=== PATIENT | female | born 1955 | race Caucasian/White ===

== ENCOUNTER 2018-06-22 08:00 | Inpatient (IN) ==
[2010-12-01 11:36] VITALS: BP 130/89
[~2018-06-22 08:00] MED LIST: BUPivacaine Liposome/PF (Exparel) Inj 20ml vial INFIL ONE; Clindamycin 900mg (Premix) 900 MG/50 ML BAG IV ONE; Ketorolac Inj 30 MG, Morphine Inj (Ortho Cocktail) 5 MG, BUPivacaine Inj 0.25% PF 150 MG SPLASH ONE; LIDOCAINE W/ SODIUM BICARB 0.5 ML SYR SUBD ONE; Lactated Ringers 1,000 ML PRIMARY IV SCH; Nasal Sanitizer POPSWAB ampule 3 AMP (Nozin) PREOP DOSE ENOS SCH; Tranexamic Acid 1,000 MG in Sodium Chloride 0.9% 100 ML IV SCH
[2018-07-12] MEDS ORDERED: Nasal Sanitizer POPSWAB ampule 3 AMP (Nozin) PREOP DOSE ENOS SCH (06:00)
[2018-07-12] MEDS ORDERED: Ketorolac Inj 30 MG, Morphine Inj (Ortho Cocktail) 5 MG, BUPivacaine Inj 0.25% PF 150 MG SPLASH ONE ×3 (06:00)
[2018-07-12] MEDS ORDERED: BUPivacaine Liposome/PF (Exparel) Inj 20ml vial INFIL ONE (06:00)
[2018-07-12] MEDS ORDERED: Tranexamic Acid 1,000 MG in Sodium Chloride 0.9% 100 ML IV SCH (06:00)
[2018-07-20] MEDS ORDERED: Clindamycin 900mg (Premix) 900 MG/50 ML BAG IV ONE ×2 (05:59→06:00)
[2018-07-20] MEDS ORDERED: Lactated Ringers 1,000 ML PRIMARY IV ONE (05:59)
[2018-07-20] MEDS ORDERED: LIDOCAINE W/ SODIUM BICARB 0.5 ML SYR ONE (05:59)
[2018-07-20] MEDS ORDERED: Tranexamic Acid 1,000 MG in Sodium Chloride 0.9% 100 ML IV SCH (06:00)
[2018-07-20] MEDS ORDERED: Lactated Ringers 1,000 ML PRIMARY IV SCH (06:00)
[2018-07-20] MEDS ORDERED: Nasal Sanitizer POPSWAB ampule 3 AMP (Nozin) PREOP DOSE ENOS SCH (06:00)
[2018-07-20] MEDS ORDERED: LIDOCAINE W/ SODIUM BICARB 0.5 ML SYR SUBD ONE (06:00)
[2018-07-20] MEDS ORDERED: Ketorolac Inj 30 MG, Morphine Inj (Ortho Cocktail) 5 MG, BUPivacaine Inj 0.25% PF 150 MG SPLASH ONE ×3 (06:00)
[2018-07-20] MEDS ORDERED: BUPivacaine Liposome/PF (Exparel) Inj 20ml vial INFIL ONE ×2 (06:00→07:23)
[2018-07-20 06:25] LABS: BILIRUBIN,URINE NEGATIVE (NEG); CLARITY,URINE CLEAR (CLEAR); COLOR,URINE YELLOW (Y); GLUCOSE, URINE (UA) NEGATIVE (NEG); OCCULT BLOOD,URINE NEGATIVE (NEG); PH,URINE 5.5 (5.0-8.5); PROTEIN,URINE NEGATIVE (NEG); UROBILINOGEN,URINE 0.2 EU/dL (0.2)
[2018-07-20 06:29] LABS: URINE SAMPLE TYPE CLEAN CATCH URINE
[2018-07-20 06:30] LABS: URINE SPECIFIC GRAVITY - MAN 1.025
[2018-07-20 06:31] LABS: BACTERIA,URINE FEW; SQUAMOUS EPITHELIAL CELL,UR FEW
[2018-07-20 06:51] LABS: BASOPHILS # (AUTO) 0.04 10*3/UL; BASOPHILS % (AUTO) 0.8 % (0-1); EOSINOPHILS # (AUTO) 0.19 10*3/UL; EOSINOPHILS % (AUTO) 3.9 % (0-8); Hemoglobin [HGB] 13.4 g/dL (12.0-16.0); LYMPHOCYTES # (AUTO) 1.82 10*3/uL; MEAN CORPUSCULAR HEMOGLOBIN 30.1 PG (27-31); MEAN CORPUSCULAR HGB CONC 32.7 g/dL (33-37); MEAN CORPUSCULAR VOLUME 92.1 FL (81-99); MEAN PLATELET VOLUME 9.4 FL (7.4-12.2); MONOCYTES # (AUTO) 0.33 10*3/UL (0.3-0.8); MONOCYTES % (AUTO) 6.7 % (5-15); NEUTROPHILS # (AUTO) 2.51 10*3/UL; NEUTROPHILS % (AUTO) 51.4 % (50-80); RED BLOOD COUNT 4.45 10^6/uL (4.20-5.40)
[2018-07-20] MEDS: LIDOCAINE W/ SODIUM BICARB 0.5 ML SYR SUBD ONE ×2 (06:57→16:34)
[2018-07-20 06:59] LABS: PLATELET MORPHOLOGY COMMENT NORMAL MORPHOLOGY (NORM); RBC MORPHOLOGY COMMENT NORMAL MORPHOLOGY (NORM); WBC MORPHOLOGY COMMENT NORMAL MORPHOLOGY (NORM)
[2018-07-20 07:01] LABS: BLOOD UREA NITROGEN 13 mg/dL (7-22); BUN/CREATININE RATIO 14.44 (6-20)
[2018-07-20] MEDS ORDERED: ONDANSETRON 4 MG/2 ML VIAL ONE (07:07)
[2018-07-20] MEDS ORDERED: DEXAMETHASONE PF 10 MG/1 ML VIAL ONE (07:07)
[2018-07-20] MEDS ORDERED: Acetaminophen 1000mg Inj 1,000 MG/100 ML VIAL IV ONE (07:07)
[2018-07-20] MEDS ORDERED: LIDOCAINE 2%/ EPI 1:200,000 - 20 ML VIAL ONE (07:16)
[2018-07-20] MEDS ORDERED: MIDAZOLAM 5 MG/1 ML ONE (07:17)
[2018-07-20] MEDS ORDERED: BUPivacaine Inj 0.5% PF (5mg/ml) 30ml vial ONE (07:17)
[2018-07-20] MEDS ORDERED: fentaNYL Inj 250 MCG/5 ML VIAL ONE (07:17)
[2018-07-20] MEDS ORDERED: SCOPOLAMINE HYDROBROMIDE 1.5 MG - 1 EACH PATCH TRANSDERM ONE (07:20)
[2018-07-20] MEDS ORDERED: Sodium Chloride 0.9% vial 60 ML ONE (07:22)
[2018-07-20] MEDS ORDERED: BACITRACIN 50,000 UNIT VIAL IRRIG ONE (07:23)
[2018-07-20] MEDS ORDERED: Sodium Chloride 0.9% 500 ML ONE (07:37)
[2018-07-20] MEDS ORDERED: LIDOCAINE MPF 2% - 5 ML (20 MG/1 ML) ONE (07:39)
[2018-07-20] MEDS ORDERED: Propofol 1,000 MG/100 ML VIAL IV ONE (07:39)
[2018-07-20] MEDS ORDERED: REMIFENTANIL HCL 2 MG VIAL IV ONE ×3 (07:42→10:56)
[2018-07-20] MEDS ORDERED: REMIFENTANIL 1 MG/1 ML IV ONE (07:42)
[2018-07-20] MEDS: Clindamycin 900mg (Premix) 900 MG/50 ML BAG IV ONE ×2 (08:10→16:34)
[2018-07-20] MEDS ORDERED: ROCURONIUM 10 MG/1 ML - 5 ML VIAL IVP ONE (08:18)
[2018-07-20] MEDS ORDERED: FLUTICASONE PROPIONATE 16 GRAM (120 SPRAYS / BOTTLE) ENOS PRN (08:19)
[2018-07-20] MEDS ORDERED: TRANEXAMIC ACID 1,000 MG / 10 ML VIAL ONE (08:19)
[2018-07-20] MEDS ORDERED: BUDESONIDE 0.5 MG/2 ML NEB PRN (08:19)
[2018-07-20] MEDS ORDERED: ALBUTEROL NEB PRN (08:19)
[2018-07-20] MEDS ORDERED: THYROID PORK 45 MG PO SCH (08:30)
[2018-07-20] MEDS ORDERED: MONTELUKAST Inhalation SCH (08:30)
[2018-07-20] MEDS ORDERED: TOPIRAMATE 100 MG PO SCH (08:30)
[2018-07-20] MEDS ORDERED: ALBUTEROL SULFATE 90 MCG INH SCH (08:30)
--- NOTE | 2018-07-20 08:49 | CRNA.PROCE ---
Nerve Block Documentation - - Type of Nerve Block Used: Left Adductor Canal Nerve Block Position for Nerve Block: Supine Moniters Used During Block: EKG, SPO2, NIBP Oxygen Supplemented: Yes Sedation Used - Enter Amount in Comment Field [ANES.SEDAT]: Midazolam (mg): Yes (2mg), Fentanyl (mcg): Yes (50mcg) Technique: Nerve Stimulator Nerve Block Needle Used: EchoBright 50 mm Stimulation Hz: 2 Stimulation Staring mA: 1.4 Stimulation Ending mA: 0.4 Local Anesthetic - Enter Amt in Comment Field [ANES.LOCNB]: 0.5 % Bupivacaine Plain (mL): Yes (20ml), 2 % Xylocaine with Epinephrine 1:200,000 (mL): Yes (20ml) Additives to Nerve Blocks: Dexamethasone (mg): Yes (8mg(2ml)) - - PreOp Block : Time In: 07:15 PreOp Block : Time Out: 07:30 Anesthesia Time - Other Weight: 76.839 kg Height: 5 ft 3 in Body Mass Index (BMI): 29.9
[2018-07-20] MEDS ORDERED: PROPOFOL 10 MG/1 ML (200 MG/20 ML) VIAL IV ONE ×2 (09:20→10:54)
[2018-07-20] MEDS ORDERED: KETOROLAC 30 MG/1 ML VIAL ONE (10:30)
[2018-07-20] MEDS ORDERED: Lactated Ringers 2,000 ML PRIMARY IV ONE (11:22)
--- NOTE | 2018-07-20 12:18 | CRNA.PROGR ---
Anesthesia Time - Procedure/Recovery Time Start Date: 07/20/18 End Date: 07/20/18 Anesthesia : Time In: 07:56 Anesthesia : Time Out: 12:12 Anesthesia : Total Time: 256 - Block Time Start Date: 07/20/18 End Date: 07/20/18 PreOp Block : Time In: 07:15 PreOp Block : Time Out: 07:30 PreOp Block : Total Time: 15 - Total Anesthesia Time Total Anesthesia Time (minutes): 271 - Other Weight: 76.839 kg Height: 5 ft 3 in Body Mass Index (BMI): 29.9 Physical Status: P2 Anesthesia Type: General Anesthesia : ET (TIVA)
--- NOTE | 2018-07-20 12:18 | CRNA.PROGR ---
Anesthesia Recovery Phase I - Post Anesthesia Evaluation Patient's Condition on Arrival in Phase I: Stable Patient's Condition on Arrival in Phase II: Stable Pain Level: 1
[2018-07-20] MEDS ORDERED: LIDOCAINE W/ SODIUM BICARB 0.5 ML SYR SUBD PRN (12:47)
[2018-07-20] MEDS: HYDROmorphone 2 MG/1 ML IVP PRN ×3 (12:55→17:29)
[2018-07-20] MEDS ORDERED: BISACODYL 5 MG TABLET PO PRN (13:51)
[2018-07-20] MEDS ORDERED: ONDANSETRON 4 MG/2 ML VIAL IVP PRN (13:51)
[2018-07-20] MEDS ORDERED: CALCIUM CARBONATE 500 MG (TUMS) CHEWABLE TABLET PO PRN (13:51)
[2018-07-20] MEDS ORDERED: ACETAMINOPHEN 325 MG TABLET PO PRN (13:51)
[2018-07-20] MEDS ORDERED: Ondansetron ODT Tab 8 MG TAB PO PRN (13:51)
[2018-07-20] MEDS ORDERED: MAG HYDROX/AL HYDROX/SIMETH 30 ML SUSP PO PRN (13:51)
[2018-07-20] MEDS ORDERED: Prochlorperazine Tab 10 MG TAB PO PRN (13:51)
[2018-07-20] MEDS ORDERED: BISACODYL 10 MG SUPPOSITORY RECTAL PRN (13:51)
[2018-07-20] MEDS ORDERED: IBUPROFEN 400 MG TABLET PO PRN (13:51)
[2018-07-20] MEDS ORDERED: LIDOCAINE HCL 2 % 10 ML JELLY URO-JECT TOPICAL PRN (13:51)
--- NOTE | 2018-07-20 13:56 | CONSULT ---
Consult Note - Consult Consult Date: 07/20/18 Reason for Consult: PostOp Consulation : Ortho Requesting Physician: Dr. Barragan Primary Care Provider: Manish HERNANDEZ - History of Present Illness History of Present Illness: This is a 62 years old female with medical history significant for history of anxiety, reactive airway disease, hypothyroidism and osteoarthritis who came into the hospital to have a left knee replacement and was done by Dr. Barragan today. The hospitalist service were consulted for management of medical issues. The patient said she feels better than earlier when she was downstairs as she was having pain in her knee and she was nauseated she received pain medication and antiemetics and that helped her symptoms. She is denying symptoms currently. There is no chest pain, no shortness of breath. Past Medical History Medical History: 1. Hypothyroidism. 2. Anxiety. 3. Osteoarthritis. 4. Reactive airway disease. 5. History of hot flashes on Topamax. Surgical History: 1. History of cholecystectomy. 2. History of tonsillectomy Family History: Reviewed an Not Pertinent Past Social History: Doesn't smoke doesn't drink no drugs. Tobacco Use: Never Smoker In the Past 12 Months, Have Used or Abuse Any of the Following Substance: None Alcohol Use: None Review of Systems - Review of Systems All Systems: Reviewed & No Additional Complaints Except as Stated Medication / Allergies Home Medications: Home Medications Medication Instructions Recorded Confirmed Type Singulair 10 mg INHALATION QAM 12/01/10 07/20/18 History thyroid (pork) 15 mg tablet 45 mg PO QDAY tab 04/01/18 07/20/18 History topiramate XR 100 mg 100 mg PO QDAY 04/01/18 07/20/18 History capsule,extended release 24 hr Albuterol Sulfate [ALBUTEROL NEB 1.25 mg NEB .Q4-6H PRN PRN 06/10/18 07/19/18 History SOLN] Albuterol Sulfate [Proair 90 mcg INH PRN 06/10/18 07/19/18 History Respiclick] Budesonide Neb Soln [Pulmicort Neb 0.5 mg NEB BID PRN 06/10/18 07/19/18 History Soln] Fluticasone Nasal [place] 0.05% 16 gm RADHA PRN PRN 06/10/18 07/19/18 History [Flonase Nasal [place] 0.05%] Meloxicam [Mobic] 7.5 mg PO DAILY 06/10/18 07/20/18 History Hydroxyzine HCl 25 mg PO BID 07/09/18 07/20/18 History Levocetirizine Dihydrochloride 5 mg PO DAILY 07/19/18 07/20/18 History [Xyzal] Duloxetine HCl 60 mg PO DAILY 07/20/18 07/20/18 History Allergies/Adverse Reactions: Allergies Allergy/AdvReac Type Severity Reaction Status Date / Time Penicillins Allergy Intermediate HIVES Verified 07/20/18 13:58 aripiprazole [From Abilify] AdvReac Intermediate NOT Verified 07/20/18 13:58 APPLICABLE Exam - Vitals Vital Signs: Vital Signs Temperature 97.2 F Pulse Rate 94 Respiratory Rate 14 Blood Pressure 126/76 Pulse Ox 98 Oxygen Flow Rate 5L NC Height 5 ft 3 in Weight 169 lb 6.4 oz - General General Appearance: No Acute Distress, Cooperative, Obese - Head Head Exam: Normal Inspection - Eye Eye Exam: POSITIVE: Normal Appearance - ENT ENT Exam: POSITIVE: Normal Exam - Neck Neck Exam: Normal Inspection - Respiratory Respiratory Exam: POSITIVE: Clear to Auscultation - Bilaterally - Cardiovascular Cardiovascular Exam: POSITIVE: RRR - GI/Abdominal GI/Abdominal Exam: POSITIVE: Normal Bowel Sounds, Non Tender, Non Distended, Soft, No Organomegaly - Rectal Rectal Exam: POSITIVE: Deferred - External Exam: POSITIVE: Deferred - Extremities Additional Extremities Exam Details: Dressing applied to the left knee - Neurological Neurological Exam: POSITIVE: Alert, Oriented x 3, CN II-XII Intact, Speech Intact / Clear - Psychiatric Psychiatric Exam: POSITIVE: Normal Affect - Integumentary Integumentary Exam: POSITIVE: Normal Color Results - Labs CBC and BMP: 07/20/18 06:40 07/20/18 06:40 Assessment and Plan - Patient Problems (1) Status post total left knee replacement Current Visit: Yes Status: Acute Comment: Management per Dr. Barragan. He already wrote for pain medication. For DVT prophylaxis he put her on aspirin. PT and OT were consulted. Code(s): Z96.652 - Presence of left artificial knee joint (2) Hypothyroidism Current Visit: Yes Status: Acute Comment: Continue her previous medication. She is on thyroid [place]. Code(s): E03.9 - Hypothyroidism, unspecified (3) Anxiety Current Visit: Yes Status: Acute Comment: Continue [place] Code(s): F41.9 - Anxiety disorder, unspecified (4) History of environmental allergies Current Visit: Yes Status: Acute Comment: Continue [place] Code(s): Z91.09 - Other allergy status, other than to drugs and biological substances
--- NOTE | 2018-07-20 14:04 | DI ---
LEFT KNEE, 07/20/2018 8:10 AM: Clinical History: Status post total knee replacement. Osteoarthritis. Previous Exam: 04/01/2018. Views: AP and lateral. Patient is status post total left knee replacement. Prosthetic joint articulates normally. A negative pressure wound care device is present. Reading: Status post total left knee replacement. The prosthetic joint articulates normally.
[2018-07-20] MEDS: Lactated Ringers 1,000 ML PRIMARY IV SCH ×7 (14:42→18:21)
[2018-07-20] MEDS: Clindamycin 900mg (Premix) 900 MG/50 ML BAG IV SCH ×2 (15:04→21:27)
[2018-07-20] MEDS: HYDROcodone-APAP 7.5 MG-325 MG TABLET PO PRN ×2 (15:18→21:22)
[2018-07-20] MEDS: TOPIRAMATE 100 MG PO SCH (16:38)
[2018-07-20] MEDS: KETOROLAC 15 MG/1 ML VIAL IVP PRN (18:24)
[2018-07-20] MEDS ORDERED: HYDROXYZINE PAMOATE 25 MG CAPSULE PO SCH (21:00)
[2018-07-20] MEDS: DOCUSATE 100 MG CAPSULE PO SCH (21:22)
[2018-07-20] MEDS: FLUTICASONE PROPIONATE ENOS SCH (21:23)
[2018-07-20] MEDS: HYDROXYZINE HCL 25 MG PO SCH (21:24)
[2018-07-21] MEDS: KETOROLAC 15 MG/1 ML VIAL IVP PRN ×2 (00:49→13:41)
[2018-07-21] MEDS: Lactated Ringers 1,000 ML PRIMARY IV SCH (00:50)
[2018-07-21] MEDS: Clindamycin 900mg (Premix) 900 MG/50 ML BAG IV SCH (01:59)
[2018-07-21] MEDS: ARMOUR THYROID 15 MG PO SCH (04:39)
[2018-07-21] MEDS: HYDROcodone-APAP 7.5 MG-325 MG TABLET PO PRN ×5 (04:39→21:50)
[2018-07-21 04:49] LABS: Hematocrit [HCT] 30.6 % (37.0-47.0); Hemoglobin [HGB] 9.6 g/dL (12.0-16.0); MEAN CORPUSCULAR HEMOGLOBIN 29.4 PG (27-31); MEAN CORPUSCULAR HGB CONC 31.4 g/dL (33-37); MEAN CORPUSCULAR VOLUME 93.6 FL (81-99); MEAN PLATELET VOLUME 9.7 FL (7.4-12.2); RED BLOOD COUNT 3.27 10^6/uL (4.20-5.40)
[2018-07-21 05:10] LABS: BLOOD UREA NITROGEN 16 mg/dL (7-22); BUN/CREATININE RATIO 17.77 (6-20)
--- NOTE | 2018-07-21 08:05 | ORTHO.PROG ---
Last Taken Vital Signs: Vital Signs - Last Taken Temperature 97.6 F 07/21/18 07:30 Pulse Rate 76 07/21/18 07:30 Respiratory Rate 16 07/21/18 07:30 Blood Pressure 120/65 07/21/18 07:30 Pulse Ox 98 07/21/18 07:30 Subjective: Patient doing well morning has a little pain about the knee Objective: Examination shows that the patient's negative pressure dressing is in place and working patient also has the iceman cooling sleeve in place. Her motor and sensory exam is intact the lower extremity with ankle toe motion as well as sensory exam. Laboratory Results 07/20/18 07/21/18 07/21/18 06:40 04:11 04:11 WBC 9.81 RBC 3.27 L Hgb 9.6 L Hct 30.6 L MCV 93.6 MCH 29.4 MCHC 31.4 L RDW Std Deviation 42.9 RDW Coeff of Cinthya 13.1 Plt Count 297 MPV 9.7 Sodium 137 D Potassium 4.4 Chloride 104 Carbon Dioxide 27 Anion Gap 6 BUN 16 Creatinine 0.9 Estimated GFR > 60 BUN/Creatinine Ratio 17.77 Glucose 109 Calculated Osmolality 285.0 Calcium 9.0 Blood Type A POSITIVE Antibody Screen Negative Crossmatch See Detail Vital Signs (24 hrs) 07/20/18 12:09 07/20/18 12:15 07/20/18 12:20 Temperature 97.2 F Pulse Rate 66 93 89 Pulse Rate [Pulse Oximeter] Respiratory Rate 14 15 17 Blood Pressure 144/77 153/88 150/93 Blood Pressure [Left Arm] Pulse Ox 91 97 99 07/20/18 12:25 07/20/18 12:30 07/20/18 12:35 Temperature Pulse Rate 85 87 87 Pulse Rate [Pulse Oximeter] Respiratory Rate 18 19 Blood Pressure 146/89 141/97 139/94 Blood Pressure [Left Arm] Pulse Ox 100 100 98 07/20/18 12:40 07/20/18 12:45 07/20/18 12:50 Temperature Pulse Rate 88 83 93 Pulse Rate [Pulse Oximeter] Respiratory Rate Blood Pressure 150/90 141/88 140/99 Blood Pressure [Left Arm] Pulse Ox 99 98 99 07/20/18 12:55 07/20/18 13:00 07/20/18 13:05 Temperature Pulse Rate 87 92 93 Pulse Rate [Pulse Oximeter] Respiratory Rate Blood Pressure 144/95 124/87 133/81 Blood Pressure [Left Arm] Pulse Ox 98 99 98 07/20/18 13:10 07/20/18 13:15 07/20/18 13:20 Temperature Pulse Rate 87 94 91 Pulse Rate [Pulse Oximeter] Respiratory Rate 15 Blood Pressure 133/75 145/83 143/81 Blood Pressure [Left Arm] Pulse Ox 98 98 98 07/20/18 13:25 07/20/18 13:30 07/20/18 13:35 Temperature Pulse Rate 95 92 94 Pulse Rate [Pulse Oximeter] Respiratory Rate 16 15 14 Blood Pressure 122/89 131/77 126/76 Blood Pressure [Left Arm] Pulse Ox 97 99 98 07/20/18 14:00 07/20/18 14:17 07/20/18 14:30 Temperature 97.7 F 97.7 F 97.1 F Pulse Rate Pulse Rate [Pulse Oximeter] 97 97 96 Respiratory Rate 16 16 8 L Blood Pressure Blood Pressure [Left Arm] 123/82 123/82 125/79 Pulse Ox 97 97 96 07/20/18 15:00 07/20/18 15:30 07/20/18 17:00 Temperature 97.4 F 97.8 F Pulse Rate Pulse Rate [Pulse Oximeter] 97 89 Respiratory Rate 12 16 Blood Pressure Blood Pressure [Left Arm] 94/76 121/71 Pulse Ox 93 97 97 07/20/18 19:00 07/20/18 21:00 07/21/18 01:00 Temperature 97.8 F 97.1 F Pulse Rate Pulse Rate [Pulse Oximeter] 64 64 61 Respiratory Rate 20 20 Blood Pressure Blood Pressure [Left Arm] 120/70 134/77 Pulse Ox 94 96 07/21/18 04:05 07/21/18 05:02 07/21/18 06:44 Temperature 97.6 F Pulse Rate Pulse Rate [Pulse Oximeter] 66 Respiratory Rate 20 12 Blood Pressure Blood Pressure [Left Arm] 130/79 Pulse Ox 94 94 07/21/18 07:30 Temperature 97.6 F Pulse Rate Pulse Rate [Pulse Oximeter] 76 Respiratory Rate 16 Blood Pressure Blood Pressure [Left Arm] 120/65 Pulse Ox 98 Assessment: Left hardware removal and total knee Anemia Plan: Patient is doing well at the current time. Patient will continue with physical therapy and occupational therapy. Pain control on oral and IV medication as needed. Deep vein thromboses prevention with aspirin and pneumatic sequentials mobilization. Continue with the icing.
[2018-07-21] MEDS: DOCUSATE 100 MG CAPSULE PO SCH ×2 (08:52→20:21)
[2018-07-21] MEDS: ASPIRIN EC 81 MG TABLET PO SCH (08:52)
[2018-07-21] MEDS: HYDROXYZINE HCL 25 MG PO SCH ×2 (08:54→20:21)
[2018-07-21] MEDS: DULOXETINE 60 MG PO SCH (08:54)
[2018-07-21] MEDS: MONTELUKAST 10 MG PO SCH (08:55)
[2018-07-21] MEDS: LEVOCETIRIZINE 10 MG PO SCH (08:55)
[2018-07-21] MEDS ORDERED: FLUTICASONE PROPIONATE ENOS SCH (09:00)
[2018-07-21] MEDS ORDERED: ASPIRIN 325 MG EC TABLET PO SCH (09:00)
[2018-07-21] MEDS ORDERED: DULOXETINE 60 MG CAPSULE PO SCH (09:00)
[2018-07-21] MEDS ORDERED: DULOXETINE 30 MG CAPSULE PO SCH (09:00)
[2018-07-21] MEDS: TOPIRAMATE 100 MG PO SCH ×2 (09:35→15:59)
--- NOTE | 2018-07-21 10:15 | PDOC(PROG) ---
Date of Service: 07/21/18 Time of Service: 10:13 Interval History: Doing well postoperatively. States that her pain is well controlled. No chest pain, no shortness breath, no vomiting, and states that her nausea is well controlled which is not typical of her prior surgeries. She is very pleased about that. Objective : Data - Labs CBC and BMP: 07/21/18 04:11 07/21/18 04:11 Objective : Exam - General General Appearance: No Acute Distress, Cooperative Additional General Exam Details: Vital Signs - Last Taken Temperature 97.6 F 07/21/18 07:30 Pulse Rate 76 07/21/18 07:30 Respiratory Rate 16 07/21/18 07:30 Blood Pressure 120/65 07/21/18 07:30 Pulse Ox 98 07/21/18 07:30 - Eye Eye Exam: No Scleral Icterus - ENT ENT Exam: Mucous Membranes Moist - Respiratory Respiratory Exam: Clear to Auscultation - Bilaterally, Breathing Non Labored - Cardiovascular Cardiovascular Exam: RRR, No Murmur, No Clicks, No Gallops, No Rubs, No JVD - GI/Abdominal GI/Abdominal Exam: Normal Bowel Sounds, Non Tender, Non Distended, Soft - Extremities Extremities Exam: No Clubbing Present, No Edema Present, No Cyanosis Present Additional Extremities Exam Details: Left knee has ice packs in place - Neurological Neurological Exam: Alert, Oriented x 3, No Facial Droop, Speech Intact / Clear Additional Neurological Exam Details: Gender walking in the art with therapy. She seems to be doing okay. Assessment and Plan - Patient Problems (1) Hypothyroidism Current Visit: Yes Status: Acute Code(s): E03.9 - Hypothyroidism, unspecified Qualifiers: Hypothyroidism type: unspecified Qualified Code(s): E03.9 - Hypothyroidism, unspecified (2) Anxiety Current Visit: Yes Status: Acute Code(s): F41.9 - Anxiety disorder, unspecified (3) History of environmental allergies Current Visit: Yes Status: Acute Code(s): Z91.09 - Other allergy status, other than to drugs and biological substances (4) Status post total left knee replacement Current Visit: Yes Status: Acute Code(s): Z96.652 - Presence of left a rtificial knee joint - Assessment / Plan Additional Assessment/Plan Details: I would recommend continuing thyroid replacement. No change overall the home medication regimen. PT and OT. DVT prophylaxis as per orthopedics.
--- NOTE | 2018-07-21 10:22 | PT.PROG ---
Progress Note Progress Note: S: Patient states she is feeling okay. She is having some pain behind her L calf. O: Patient ambulated 100 ft around the nurses station with her four point walker. A: Patient tolerated activities well. She did required one rest break due to pain and fatigue. Patient will benefit from skilled intervention. P: Patient will be seen twice a day during the week and once over the weekend until discharge.
--- NOTE | 2018-07-21 11:07 | PTI REPORT ---
Thank you for the referral of Dari Knapp. She was seen on 07/20/18 for an inpatient evaluation status post left total knee arthroplasty. SUBJECTIVE: The patient is a 62-year-old female. The patient reports she is having a pain level currently of 4/10 on the verbal analog scale (0=no pain, 10=worst pain) after receiving pain medication from nursing approximately 45 minutes ago. She states she is eager to get up, but is concerned with her past medical history of having problems with nausea and vomiting following each of her surgeries. PAST MEDICAL HISTORY: Past medical history can be found in the patient's medical record. OBJECTIVE FINDINGS: Bed mobility: The patient was able to perform bed mobility with min assist for the left lower extremity from supine to edge of bed. At the time she was able to sit unsupported at edge of bed for up to 5 minutes without any recreation of nausea or vomiting as well as any further increase in pain. Transfers: The patient was able to perform a sit to stand transfer with verbal and tactile cues for proper hand placement while maintaining weight-bearing as tolerated on the left lower extremity. Strength/Range of motion: Strength and range of motion were not formally assessed due to surgical precautions; however, upon observation the patient was able to perform about 90 degrees of flexion at edge of bed and 5 degrees from full extension while in bed. Ambulation: Ambulation was not attempted this visit due to the patient's concern with not trusting that left lower extremity; however, the patient was able to perform standing weight shifting and therapeutic exercises at edge of bed including long arc quads, heel raises, and seated marching. ASSESSMENT: Problem List: Pain in the left knee Decreased passive and active range of motion in the left knee Decreased strength in the left knee Short-Term Goals: To be met by discharge from inpatient: Patient will be able to transfer from bed to stand independently. Patient will be able to ambulate 100 feet with walker, weight-bearing as tolerated. Patient will be able to ascend and descent five stairs with walker, weight- bearing as tolerated. Long-Term Goals: To be met following discharge from inpatient: Patient may be seen by outpatient physical therapy. TREATMENT PLAN: Patient will be seen B.I.D during the week and one time per day over the weekend as an inpatient to address the above goals and objectives. INITIAL TREATMENT: Treatment today consisted of the initial evaluation followed by the patient being issued a standard walker. The patient did bring her own walker that she had borrowed, but it had wheels and she was not familiar with it. Per the therapist's safety concerns, the patient was issued a standard walker by therapy. She performed bed mobility from supine to edge of bed with min assist for the left lower extremity followed by unsupported seated activities, sit to stands, and weight shifting weight-bearing with the left lower extremity. VERONIKA
[2018-07-21] MEDS ORDERED: TOPIRAMATE 100 MG PO SCH (15:00)
--- NOTE | 2018-07-21 16:35 | PT.PROG ---
Progress Note Progress Note: Patient was not seen this afternoon due to Ultrasound testing to rule out DVT
--- NOTE | 2018-07-21 16:52 | DI ---
VENOUS DOPPLER ULTRASOUND OF THE LEFT LOWER EXTREMITY, 07/21/2018 1:34 PM: Clinical History: Calf pain postoperatively. Previous Exam: None. Technique: 2D real-time imaging and color Doppler ultrasound with compression and augmentation maneuv ers. Deep Venous System: Normal deep venous system from groin to popliteal fossa. Superficial Venous System: Normal greater saphenous vein. Reading: Negative venous Doppler ultrasound of the left lower extremity.
--- NOTE | 2018-07-21 16:54 | ORTHO.OP ---
- - -: See Dictated Operative Report Procedure Codes - Lower Extremity/Knee Procedures Primary Lower Extremity Procedure Code: 60434 : TKA (Priyanka HARRIS assisted)
[2018-07-21] MEDS: HYDROmorphone 2 MG/1 ML IVP PRN ×2 (17:41→21:50)
[2018-07-21] MEDS: FLUTICASONE PROPIONATE ENOS SCH (20:21)
[2018-07-21] MEDS: diphenhydrAMINE 25 MG CAPSULE PO PRN (20:21)
[2018-07-22] MEDS: diphenhydrAMINE 25 MG CAPSULE PO PRN (01:32)
[2018-07-22] MEDS: HYDROcodone-APAP 7.5 MG-325 MG TABLET PO PRN ×5 (01:32→22:24)
[2018-07-22] MEDS: HYDROmorphone 2 MG/1 ML IVP PRN ×3 (01:33→18:56)
[2018-07-22] MEDS: ARMOUR THYROID 15 MG PO SCH (04:42)
[2018-07-22 05:04] LABS: Hematocrit [HCT] 29.8 % (37.0-47.0); Hemoglobin [HGB] 9.3 g/dL (12.0-16.0); MEAN CORPUSCULAR HEMOGLOBIN 29.7 PG (27-31); MEAN CORPUSCULAR HGB CONC 31.2 g/dL (33-37); MEAN CORPUSCULAR VOLUME 95.2 FL (81-99); MEAN PLATELET VOLUME 9.6 FL (7.4-12.2); RED BLOOD COUNT 3.13 10^6/uL (4.20-5.40)
[2018-07-22 05:27] LABS: BUN/CREATININE RATIO 13.84 (6-20)
[2018-07-22] MEDS: KETOROLAC 15 MG/1 ML VIAL IVP PRN (07:20)
[2018-07-22] MEDS: ASPIRIN EC 81 MG TABLET PO SCH (08:12)
[2018-07-22] MEDS: DULOXETINE 60 MG PO SCH (08:12)
[2018-07-22] MEDS: TOPIRAMATE 100 MG PO SCH ×2 (08:12→15:51)
[2018-07-22] MEDS: DOCUSATE 100 MG CAPSULE PO SCH ×2 (08:12→20:23)
[2018-07-22] MEDS: MONTELUKAST 10 MG PO SCH (08:13)
[2018-07-22] MEDS: LEVOCETIRIZINE 10 MG PO SCH (08:13)
[2018-07-22] MEDS: HYDROXYZINE HCL 25 MG PO SCH ×2 (08:14→20:23)
--- NOTE | 2018-07-22 08:28 | OTI REPORT ---
Thank you for the referral of Dari Knapp. She was seen on 07/21/18 for an occupational therapy inpatient evaluation status post left total knee arthroplasty. SUBJECTIVE: The patient is a 62-year-old female. The patient reports she is feeling okay. She did feel better this morning; however, her pain has returned a little bit. She is currently reporting a pain level of 4/10 on the verbal analog scale (0=no pain, 10=worst pain); however, she just had pain medication not too long ago. The patient reports that her home set up includes a couple of steps to the entrance of her home with no hand rails. The patient lives at home with her who is able to provide assistance as needed. She has no steps within the inside of her home. Her bathroom set up includes a toilet riser and she has a tub/shower combo with a shower chair already available. The patient does report that her is able to help with ADLs to include lower extremity dressing and functional mobility. At prior level of function the patient was independent with all ADLs and iADLs. She ambulated without the use of an assistive device and is currently ambulating with a standard walker as issued by the physical therapy department. PAST MEDICAL HISTORY: Past medical history can be found in the patient's medical record. OBJECTIVE FINDINGS: Range of motion: The patient demonstrated upper extremity range of motion within functional limits for the shoulder, elbow, hand, and wrist. Strength: Upper extremity strength is 4+/5 bilaterally in the shoulder, elbow, hand, and wrist. Activities of daily living: The patient is able to doff her right sock without the use of an assistive device; however, she requires assistance to perform any dressing on the left lower extremity. The patient was issued a long handled bath sponge, a forensic manager, sock aide, and a long handled shoe horn. The patient did not want to get dressed this afternoon and reports that she wants to try tomorrow morning. She was educated in all of the adaptive equipment at this time and reported that she wanted it all. Ambulation: The patient was able to ambulate to and from the bathroom with contact guard assist for safety. Bed mobility: The patient was able to complete bed mobility including moving from sitting edge of bed to supine using a leg lifting technique with the right lower extremity independently. The patient was able to reposition in bed independently; however, it did increase her pain. Edema: The patient is having some swelling at this time and nursing was notified to put the CryoCuff on after OT left. ASSESSMENT: The patient has good rehab potential. Problem List: Decreased ability to perform lower extremity dressing Decreased ability to perform showering task Decreased functional mobility Occupational Therapy Goals: To be met by discharge from inpatient: Patient will demonstrate the ability to complete all lower extremity dressing including donning/doffing of socks, underwear, and pants with use of adaptive equipment and modified independence. Patient will complete all functional transfers including bed/chair/toilet/shower with contact guard assist only for safety. Patient will complete a seated showering task with stand by assistance only. Patient will be independent in the use of adaptive equipment and demonstrate safety with functional mobility tasks with use of the walker. TREATMENT PLAN: Patient will be seen B.I.D during the week and one time per day over the weekend as an inpatient to address the above goals and objectives. INITIAL TREATMENT: Treatment today consisted of the occupational therapy evaluation only. VERONIKA
--- NOTE | 2018-07-22 08:35 | ORTHO.PROG ---
Last Taken Vital Signs: Vital Signs - Last Taken Temperature 97.2 F 07/22/18 07:10 Pulse Rate 64 07/22/18 07:10 Respiratory Rate 16 07/22/18 07:27 Blood Pressure 99/61 07/22/18 07:10 Pulse Ox 97 07/22/18 07:10 Subjective: Patient feels her pain is a little bit more today compared to yesterday after her block has worn off. Objective: Examination shows that the patient actually do a straight leg raise with the knee bent about 20. Her foot and ankle motion is pretty good. Her dressing is in place and the iceman cooling covers in place over the knee. Her motor and sensory exam seems to be normal in the lower extremity at the current time. Ultrasound lower extremity showed no evidence of deep vein thromboses of the left lower extremity yesterday afternoon. Laboratory Results 07/22/18 07/22/18 04:41 04:41 WBC 8.43 RBC 3.13 L Hgb 9.3 L Hct 29.8 L MCV 95.2 MCH 29.7 MCHC 31.2 L RDW Std Deviation 44.2 RDW Coeff of Cinthya 13.4 Plt Count 296 MPV 9.6 Sodium 141 Potassium 3.8 Chloride 105 Carbon Dioxide 29 Anion Gap 7 BUN 18 Creatinine 1.3 H Estimated GFR 42 BUN/Creatinine Ratio 13.84 Glucose 90 Calculated Osmolality 293.0 H Calcium 9.2 Vital Signs (24 hrs) 07/21/18 11:42 07/21/18 16:25 07/21/18 20:48 Temperature 98.4 F 99 F 97.1 F Pulse Rate [Pulse Oximeter] 73 79 74 Respiratory Rate 16 20 20 Blood Pressure [Left Arm] 96/63 122/60 112/61 Pulse Ox 96 90 94 07/22/18 01:00 07/22/18 04:40 07/22/18 04:55 Temperature 97.3 F 97.1 F Pulse Rate [Pulse Oximeter] 93 79 Respiratory Rate 18 18 Blood Pressure [Left Arm] 116/63 Pulse Ox 94 94 97 07/22/18 07:10 07/22/18 07:27 Temperature 97.2 F Pulse Rate [Pulse Oximeter] 64 Respiratory Rate 16 16 Blood Pressure [Left Arm] 99/61 Pulse Ox 97 Assessment: Status post left total knee replacement doing well Anemia Plan: Patient will continue with physical therapy and occupational therapy, patient is struggling a little with the pain control though I think she still has some room for continued expansion of the medications that are already ordered. We'll have her continue with deep vein thromboses prophylaxis with aspirin and pneumatic sequential portable devices. Continue with walker with partial weightbearing as tolerated. Patient has been using IV medication and I don't think is ready to be discharged today.
--- NOTE | 2018-07-22 09:48 | PDOC(PROG) ---
Date of Service: 07/22/18 Time of Service: 09:44 Interval History: no chest pain, no shortness of breath, no nausea or vomiting. left knee pain a bit worse today, but tolerating therapy. we discussed kidney function with anti-inflammatories, fluids. Objective : Data - Labs CBC and BMP: 07/22/18 04:41 07/22/18 04:41 Objective : Exam - General General Appearance: No Acute Distress, Cooperative Additional General Exam Details: Vital Signs - Last Taken Temperature 97.2 F 07/22/18 07:10 Pulse Rate 64 07/22/18 07:10 Respiratory Rate 16 07/22/18 07:27 Blood Pressure 99/61 07/22/18 07:10 Pulse Ox 97 07/22/18 07:10 - Eye Eye Exam: No Scleral Icterus - ENT ENT Exam: Mucous Membranes Moist - Neck Neck Exam: JVP is not Raised - Respiratory Respiratory Exam: Clear to Auscultation - Bilaterally, Breathing Non Labored - Cardiovascular Cardiovascular Exam: RRR, No Murmur, No Clicks, No Gallops, No Rubs, No JVD - GI/Abdominal GI/Abdominal Exam: Normal Bowel Sounds, Non Tender, Non Distended, Soft - Extremities Extremities Exam: No Clubbing Present, No Edema Present, No Cyanosis Present Additional Extremities Exam Details: left knee dressed. dressing is clean, dry, intact - Neurological Neurological Exam: Alert, Oriented x 3, No Facial Droop, Speech Intact / Clear - Psychiatric Psychiatric Exam: Normal Affect, Normal Mood Assessment and Plan - Patient Problems (1) Acute renal failure Current Visit: Yes Status: Acute Code(s): N17.9 - Acute kidney failure, unspecified Qualifiers: Acute renal failure type: unspecified Qualified Code(s): N17.9 - Acute kidney failure, unspecified (2) Hypothyroidism Current Visit: Yes Status: Acute Code(s): E03.9 - Hypothyroidism, unspecified Qualifiers: Hypothyroidism type: unspecified Qualified Code(s): E03.9 - Hypothyroidism, unspecified (3) Anxiety Current Visit: Yes Status: Acute Code(s): F41.9 - Anxiety disorder, unspeci fied (4) History of environmental allergies Current Visit: Yes Status: Acute Code(s): Z91.09 - Other allergy status, other than to drugs and biological substances (5) Status post total left knee replacement Current Visit: Yes Status: Acute Code(s): Z96.652 - Presence of left artificial knee joint - Assessment / Plan Additional Assessment/Plan Details: given increase in creatinine, stop anti-inflammatories, start IV fluids will write for tramadol for pain PRN check creatinine in AM patient aware that NSAIDs can cause kidney issues--she agrees with plan but is also worried about her pain PT and OT DVT prophylaxis as per orthopedics.
[2018-07-22] MEDS: Sodium Chloride 0.9% 1,000 ML PRIMARY IV SCH ×2 (10:28→22:24)
[2018-07-22] MEDS: traMADol 50 MG TABLET PO PRN ×2 (10:30→18:11)
--- NOTE | 2018-07-22 11:11 | OT.PROG ---
Progress Note Progress Note: S: pt reported that pain is a little worse today. She reported already having breakfast and was ready to try therapy. Her knee is tight in the morning. O: pt was seen in her room and completed bed mobility to EOB INd. She was educated on sock aid/diabetologist and then completed donning/doffing of socks Ind. She then completed functional transfer approx 50 before sittin on EOB. She was transferred downstairs in w/c and completed sit to stand with CGA for safety. She transferred apprx 12 ft and completed bed mobility Ind to supine position. She received moist heat to LE. A: pt demonstrated ADL dressing well today and although tight completed transfers well. \ P: Continue per POC.
--- NOTE | 2018-07-22 11:44 | PT.PROG ---
Progress Note Progress Note: S. Patient stated that she is having a lot of pain in her calf. O. Patient ambulated 80 feet to the wheelchair and was wheeled to the therapy gym where she had heat to her knee then performed, heel slides, quad sets, ankle pumps, short arc quads, straight leg raises, seated long arc quads and sit to stands all x 10. Patient then ambulated 80 feet to the wheelchair and was returned to her room where she was left in bed with alarm and call light. A. patient tolerated therapy well this morning, she was able to perform exercises with min assist, she would continue to benefit from skilled therapy to increase mobility and strength at this time. P. Continue POC.
--- NOTE | 2018-07-22 15:19 | PT.PROG ---
Progress Note Progress Note: S: Pt. states she is doing pretty good. States she wants to go home, but states there are concerns with her kidneys. O: Treatment consisted of moist heat to left knee followed by therapeutic exercises: qs, hs, slr, saq, hip abd/add, laq, seated marches, and ambulating with SW. She also received manual therapy to LE into flexion and extension. A: Pt. overall tolerated all activities well. She is able to perform bed mobility independently. Knee flexion to approx 90 degress and knee extension is at approx -10 degrees. P: Continue per POC to increase strength and activity tolerance. Saige Vick, MYSQL DATABASE DEVELOPER
--- NOTE | 2018-07-22 16:07 | CRNA.PROGR ---
Anesthesia Note - Progress Notes Anesthesia Progress Note: Post OP Anesthesia Note Pt is sitting up in bed having just been up ambulating. States that her pain is well under control. She states that she had no N/V postoperatively. She is tolerating the regular diet. She denies any residual problems from the TIVA GE TA. Current VS are stable. Vital Signs - Last Taken Temperature 97.8 F 07/22/18 12:20 Pulse Rate 85 07/22/18 12:20 Respiratory Rate 16 07/22/18 12:20 Blood Pressure 119/64 07/22/18 12:20 Pulse Ox 94 07/22/18 12:20
[2018-07-22] MEDS: FLUTICASONE PROPIONATE ENOS SCH (20:24)
[2018-07-23] MEDS: traMADol 50 MG TABLET PO PRN (00:03)
[2018-07-23] MEDS: HYDROcodone-APAP 7.5 MG-325 MG TABLET PO PRN ×2 (04:25→08:55)
[2018-07-23] MEDS: ARMOUR THYROID 15 MG PO SCH (04:33)
[2018-07-23 05:00] LABS: Hematocrit [HCT] 28.5 % (37.0-47.0); Hemoglobin [HGB] 8.9 g/dL (12.0-16.0); MEAN CORPUSCULAR HEMOGLOBIN 29.9 PG (27-31); MEAN CORPUSCULAR HGB CONC 31.2 g/dL (33-37); MEAN CORPUSCULAR VOLUME 95.6 FL (81-99); MEAN PLATELET VOLUME 9.7 FL (7.4-12.2); RED BLOOD COUNT 2.98 10^6/uL (4.20-5.40)
--- NOTE | 2018-07-23 08:30 | ORTHO.PROG ---
Last Taken Vital Signs: Vital Signs - Last Taken Temperature 98.6 F 07/23/18 06:48 Pulse Rate 85 07/23/18 06:48 Respiratory Rate 19 07/23/18 06:48 Blood Pressure 108/65 07/23/18 06:48 Pulse Ox 92 07/23/18 06:48 Subjective: Patient notes she still has a fair amount of discomfort. Objective: Patient has ability to ambulate with a walker she has her dressing in place. There is no significant bleeding or fluid into the dressing. She has pretty good extension she can do a straight leg raise. Motor and sensory exam in the lower extremity and ankle foot is seems to be normal a mild amount of swelling distally Laboratory Results 07/23/18 07/23/18 04:24 04:24 WBC 7.61 RBC 2.98 L Hgb 8.9 L Hct 28.5 L MCV 95.6 MCH 29.9 MCHC 31.2 L RDW Std Deviation 44.6 RDW Coeff of Cinthya 13.5 Plt Count 297 MPV 9.7 Sodium 139 Potassium 3.7 L Chloride 104 Carbon Dioxide 27 Anion Gap 8 BUN 14 Creatinine 1.0 Estimated GFR 56 BUN/Creatinine Ratio 14.00 Glucose 102 Calculated Osmolality 288.0 Calcium 8.8 Vital Signs (24 hrs) 07/22/18 12:20 07/22/18 16:46 07/22/18 19:00 Temperature 97.8 F 98.9 F Pulse Rate [Pulse Oximeter] 85 82 Respiratory Rate 16 18 18 Blood Pressure [Left Arm] 119/64 112/58 Pulse Ox 94 93 07/22/18 20:52 07/23/18 00:25 07/23/18 04:20 Temperature 98.4 F 97.9 F Pulse Rate [Pulse Oximeter] 84 87 Respiratory Rate 16 20 Blood Pressure [Left Arm] 120/68 134/70 Pulse Ox 92 94 95 07/23/18 05:00 07/23/18 06:48 Temperature 98.1 F 98.6 F Pulse Rate [Pulse Oximeter] 88 85 Respiratory Rate 20 19 Blood Pressure [Left Arm] 159/76 108/65 Pulse Ox 92 92 Assessment: Patient with left total knee replacement and removal of hardware doing well Plan: Patient will continue with physical therapy occupational therapy pain control we'll see how she does of this afternoon in today if she is just taking oral medication we potentially could discharge her home and also if she is cleared by physical therapy
[2018-07-23] MEDS: Sodium Chloride 0.9% 1,000 ML PRIMARY IV SCH (08:51)
[2018-07-23] MEDS: DOCUSATE 100 MG CAPSULE PO SCH (08:55)
[2018-07-23] MEDS: ASPIRIN EC 81 MG TABLET PO SCH (08:55)
[2018-07-23] MEDS: MONTELUKAST 10 MG PO SCH (08:56)
[2018-07-23] MEDS: HYDROXYZINE HCL 25 MG PO SCH (08:57)
[2018-07-23] MEDS: DULOXETINE 60 MG PO SCH (08:57)
[2018-07-23] MEDS: LEVOCETIRIZINE 10 MG PO SCH (08:57)
[2018-07-23] MEDS: TOPIRAMATE 100 MG PO SCH ×2 (08:58→15:07)
[2018-07-23] MEDS ORDERED: HYDROcodone-APAP 10 MG-325 MG TABLET PO PRN (11:12)
[2018-07-23] MEDS ORDERED: oxyCODONE/APAP 7.5/325 Tab 1 TAB TAB PO PRN (11:28)
[2018-07-23] MEDS ORDERED: methylPREDNISolone 40 MG/1 ML VIAL IVP ONE (12:05)
--- NOTE | 2018-07-23 12:10 | PT.PROG ---
Progress Note Progress Note: S. Patient stated that she is feeling good this morning, she states she feels that she is ready to go home. O. Patient ambulated 80 feet to the wheelchair and was wheeled to the therapy gym where she had heat and micro massage to her knee to decrease pain and edema then performed, heel slides, quad sets, ankle pumps, short arc quads, all x 10, sit to stands x 10 and box step ups with #2 box x 10. Patient then ambulated 90 feet to the wheelchair and was returned to her room where she was left with alarm and call light. A. Patient tolerated therapy well, she was able to perform all exercises with no increase in pain, Patient was able to achieve 90 degrees of flexion in seated, she would benefit from outpatient therapy at this time. P. Patient has met all goals.
--- NOTE | 2018-07-23 14:15 | PT.PROG ---
Progress Note Progress Note: S. Patient stated that she feels that she did too much in therapy this morning. O. Patient ambulated 50 feet in the art and back to her room where she was left with alarm and call light. A. Patient tolerated ambulation fair, she struggled to get her legs back into bed this afternoon, however was able to perform transfer with assistive device. Patient would continue to benefit from outpatient therapy at this time. P. Continue POC.
--- NOTE | 2018-07-23 16:04 | DCSUMMARY ---
Hospitalization Summary Admit Date: 07/20/2018 Discharge Date: 07/23/18 Primary Diagnosis:: status post left total knee arthroplasty Hospital Course: This very pleasant 62-year-old female that came here for a left total knee arthroplasty done by Dr. Barragan on 07/20/2018. See his surgical note regarding the procedure. The patient postoperatively did very well, although she did have some issues with pain control. She eventually had to be switched from hydrocodone to Percocet which controlled her pain very well and she will be discharged home on that via orthopedics. Her DVT prophylaxis is being done with aspirin. That is as per orthopedics. In terms of her medical issues, her reactive airway disease/asthma component did not have any exacerbations. She did have a slight elevation in her creatinine that improved with IV fluids and cessation of anti-inflammatories and I did advise her to stay off of anti-inflammatories for at least the next 2 weeks and indefinitely if possible. I told her to address it with her primary physician in 2 weeks to decide whether or not she go back on these medicines for pain control for her osteoarthritis symptoms. Today, no completes chest pain, shortness breath, nausea or vomiting. Percocet really worked well to control the patient's pain versus hydrocodone and she would like to go home. This is all discussed with her daughter and with orthopedics and everybody is in agreement with the discharge plan. Assessment and Plan: 1. As per discharge assessments noted 2. Disposition: Patient is discharged home. 3. Condition on discharge, stable and improved. 4. Diet: regular diet 5. Activities: PT as per Dr. Barragan 6. Follow-Up: 1. Dr. Barragan, in the next 1-[address] Hernandez in one week to recheck medical issues 7. Medications at the Time of Discharge: Home Medications Medication Instructions Recorded Confirmed Type Singulair 10 mg PO QAM 12/01/10 07/21/18 History thyroid (pork) 15 mg tablet 45 mg PO QDAY tab 04/01/18 07/20/18 History topiramate XR 100 mg 100 mg PO QDAY 04/01/18 07/20/18 History capsule,extended release 24 hr Albuterol Sulfate [ALBUTEROL NEB 1.25 mg NEB .Q4-6H PRN PRN 06/10/18 07/19/18 History SOLN] Budesonide Neb Soln [PULMICORT NEB 0.5 mg NEB BID PRN 06/10/18 07/19/18 History SOLN] Fluticasone Nasal [place] 0.05% 16 gm RADHA PRN PRN 06/10/18 07/19/18 History [Flonase Nasal [place] 0.05%] Hydroxyzine HCl 25 mg PO BID 07/09/18 07/20/18 History Levocetirizine Dihydrochloride 5 mg PO DAILY 07/19/18 07/20/18 History [Xyzal] Duloxetine HCl 60 mg PO DAILY 07/20/18 07/20/18 History Aspirin EC 81 mg PO DAILY tab 07/23/18 Rx oxyCODONE/APAP 7.5/325 Tab 1 - 2 tab PO Q4H PRN #50 tab 07/23/18 Rx [Percocet 7.5/325 Tab] 8. Time, care, counseling and coordination of care for this discharge is greater than 30 minutes. Exam - Vitals Vital Signs: Vital Signs Temperature 98.3 F Temperature Source Temporal Artery Scan Pulse Rate [Pulse Oximeter] 86 Pulse Rate 94 Respiratory Rate 20 Blood Pressure [Right Arm] 152/73 Blood Pressure [Left Arm] 108/65 Blood Pressure 126/76 Pulse Ox 93 Oxygen Flow Rate 1.5 Oxygen Delivery Method Room Air Height 5 ft 3 in Weight 183 lb - General General Appearance: No Acute Distress, Cooperative - Head Head Exam: Normal Inspection, Normocephalic, Atraumatic - Eye Eye Exam: POSITIVE: No Scleral Icterus - ENT ENT Exam: POSITIVE: Mucous Membranes Moist - Respiratory Respiratory Exam: POSITIVE: Clear to Auscultation - Bilaterally, Breathing Non Labored - Cardiovascular Cardiovascular Exam: POSITIVE: RRR, No Murmur, No Clicks, No Gallops, No Rubs, No JVD - GI/Abdominal GI/Abdominal Exam: POSITIVE: Normal Bowel Sounds, Non Tender, Non Distended, Soft - Extremities Extremities Exam: POSITIVE: No Clubbing Present, No Edema Present, No Cyanosis Present Additional Extremities Exam Details: Left knee with incision that is dressed. - Neurological Neurological Exam: POSITIVE: Alert, Oriented x 3, Normal Gait (with walker, doing great.), No Facial Droop, Speech Intact / Clear, Moves All Extremities Equally Data Peritnent Studies: 07/23/18 07/23/18 04:24 04:24 WBC 7.61 Hgb 8.9 L Hct 28.5 L Plt Count 297 Sodium 139 Potassium 3.7 L Chloride 104 Carbon Dioxide 27 Anion Gap 8 BUN 14 Creatinine 1.0 Estimated GFR 56 BUN/Creatinine Ratio 14.00 Glucose 102 Calculated Osmolality 288.0 Calcium 8.8 Procedures: [address] [facility] [place] [address] PH: DD: [phone] FAX: [phone] ~DIAGNOSTIC IMAGING REPORT~ Patient: LENNY MOORE : 1955 Sex: F Age: 62 Exam Name: XR KNEE 1 OR 2 VWS Exam Date: 07/20/18 Report # : [id number] CPT Code: 29504 EMR/MR #: [id number] Ordering: Karri Barragan Admiting: Karri Barragan MD. Primary: Shlomo HERNANDEZ JR., MD. Attending: Karri Barragan MD. Signed LEFT KNEE, 07/20/2018 8:10 AM: Clinical History: Status post total knee replacement. Osteoarthritis. Previous Exam: 04/01/2018. Views: AP and lateral. Patient is status post total left knee replacement. Prosthetic joint articulates normally. A negative pressure wound care device is present. Reading: Status post total left knee replacement. The prosthetic joint articulates normally. Dictated By: 07/20/18 1357 DENISE EVANS MD. Signed By: 07/20/18 1408 DENISE EVANS MD. [address] [facility] [place] [address] PH: DD: [phone] FAX: [phone] ~DIAGNOSTIC IMAGING REPORT~ Patient: LENNY MOORE JABARI : 1955 Sex: F Age: 62 Exam Name: US Up/Low Ext Veins U/L or Ltd Exam Date: 07/21/18 Report # : [id number] CPT Code: 53661 EMR/MR #: [id number] Ordering: Karri Barragan Admiting: Karri Barragan MD. Primary: Shlomo HERNANDEZ JR., MD. Attending: Karri Barragan MD. Signed VENOUS DOPPLER ULTRASOUND OF THE LEFT LOWER EXTREMITY, 07/21/2018 1:34 PM: Clinical History: Calf pain postoperatively. Previous Exam: None. Technique: 2D real-time imaging and color Doppler ultrasound with compression and augmentation maneuvers. Deep Venous System: Normal deep venous system from groin to popliteal fossa. Superficial Venous System: Normal greater saphenous vein. Reading: Negative venous Doppler ultrasound of the left lower extremity. Dictated By: 07/21/18 1647 DENISE EVANS MD. Signed By: 07/21/18 1652 DENISE EVANS MD. Patient Problems - Patient Problem List (1) Status post total left knee replacement Current Visit: Yes Status: Acute Code(s): Z96.652 - Presence of left artificial knee joint Category: Surgical (2) Hypothyroidism Current Visit: Yes Status: Acute Code(s): E03.9 - Hypothyroidism, unspecified Qualifiers: Hypothyroidism type: unspecified Qualified Code(s): E03.9 - Hypothyroidism, unspecified Category: Medical (3) Anxiety Current Visit: Yes Status: Acute Code(s): F41.9 - Anxiety disorder, unspe cified Category: Medical (4) History of environmental allergies Current Visit: Yes Status: Acute Code(s): Z91.09 - Other allergy status, other than to drugs and biological substances Category: Medical (5) Acute renal failure Current Visit: Yes Status: Resolved Code(s): N17.9 - Acute kidney failure, unspecified Qualifiers: Acute renal failure type: unspecified Qualified Code(s): N17.9 - Acute kidney failure, unspecified Category: Medical
--- NOTE | 2018-07-23 17:07 | OT.PROG ---
Progress Note Progress Note: S: pt stated she was hoping to go home today. O: tx consisted of dressing at EOB UE and LE with use of mechanical repair worker and sock aide. pt was independent with all dressing tasks. pt transferred from EOB to sink with use of walker and SBA for safety and completed ADL tasks at sink of brushing teeth and hair. pt had no difficulties completing tasks and had no losses of balance. A: pt tolerated session well and is independent in all ADL tasks. P: continue POC
== END 2018-07-23 16:17 | disposition home or self-care (01) | DRG 470 ==
LOC: OPS 07-20 05:58 → MED/SURG 07-20 13:46
PROVIDERS: ADMIT Orthopaedic Surgery; ATTEND Orthopaedic Surgery